=== PATIENT | male | born 1945 | race Caucasian/White ===

== ENCOUNTER 2017-11-20 02:55 | Inpatient (IN) | payer OTHER ==
[~2017-11-20] VITALS: Ht 175.3 cm; Wt 87.3 kg
--- NOTE | 2017-11-20 12:20 | Admission Core Measures ---
Acute Coronary Syndrome (CM) ACS Core Measures Acute Coronary Syndrome Diagnosis No Congestive Heart Failure (NEW) CHF Core Measures Congestive Heart Failure Diagnosis No Cerebrovascular Accident CVA Core Measures CVA/TIA Diagnosis No Venous Thromboembolism VTE Core Marycarmen (View Protocol) VTE Risk Factors Surgery No Mechanical VTE Prophylaxis d/t N/A MechProphylax Ordered No VTE Pharm Prophylaxis d/t NA PharmProphylax ordered Problem List As ranked by this Provider includes Assessment & Plan 1. Unilateral primary osteoarthritis, right hip HOME MEDS Home Med List No Known Home Medications
--- NOTE | 2017-11-20 12:20 | Surg Short-stay <48hrs Dis Sum ---
Visit Information Visit Dates Admission Date: 11/20/17 Surgical Short Stay DC Summary Admission Diagnosis: Right hip osteoarthritis Final Diagnosis: SARA s/p R BRANDON Procedure(s): Right total hip arthroplasty Summary/Significant Findings: Patient underwent an elective right total hip replacement on 11/20/[address] Treviño. Patient tolerated the procedure well. Postoperatively he was tolerating a regular diet, voiding spontaneously. Pain was well managed with oral medication and he was ambulating with physical therapy using a rolling walker. Patient was cleared for discharge. Condition at Discharge: Stable Discharge Disposition: home health services Discharge instructions provided to patient/family: Yes Post discharge follow-up plan: [address] Treviño
--- NOTE | 2017-11-20 12:23 | Patient Discharge Instructions ---
Discharge Instructions General Discharge Information You were seen/treated for: Right hip osteoarthritis You had these procedures: Right total hip arthroplasty on 11/20/17 Watch for these problems: Fever over 100.4 Drainage from wound Redness and swelling around wound Unable to bear weight on right lower extremity Chest pain or shortness of breath Do not soak the wound: Yes No bath, but you may shower: Yes Other wound care: Keep incision clean and dry Daily dry dressing changes Special Instructions: Take asiprin 81 mg twice daily to prevent clots Take Indomethacin 25 mg three times/day Take a stool softner or laxative, such as colace or miralax to prevent constipation while taking narcotics. Diet Continue normal diet: Yes Activity Full Activity/No Limits: No Activity Self Limited: Yes Activity Limited to: Weight bear as tolerated (use rolling walker as needed) Acute Coronary Syndrome Inclusion Criteria At DC or during hospital stay patient has or had the following: ACS DIAGNOSIS No Discharge Core Measures Meds if any: Prescribed or Continued at Discharge Meds if any: NOT Prescribed or Continued at Discharge Congestive Heart Failure Inclusion Criteria At DC or during hospital stay patient has or had the following: CHF DIAGNOSIS No Discharge Core Measures Meds if any: Prescribed or Continued at Discharge Meds if any: NOT Prescribed or Continued at Discharge Cerebrovascular accident Inclusion Criteria At DC or during hospital stay patient has or had the following: CVA/TIA Diagnosis No Discharge Core Measures Meds if any: Prescribed or Continued at Discharge Meds if any: NOT Prescribed or Continued at Discharge Venous thromboembolism Inclusion Criteria VTE Diagnosis No VTE Type NONE VTE Confirmed by (Test) NONE Discharge Core Measures - Per Current guidelines, there needs to be overlap - treatment for the first 5 days of Warfarin therapy. - If discharged on Warfarin prior to 5 days of - overlap therapy, the patient will need to be - assessed for post discharge needs including - *Post discharge parental anticoagulation - *Warfarin and/or parental anticoagulation education - *Follow up date to check INR post discharge At least 5 days overlap therapy as Inpatient No Meds if any: Prescribed or Continued at Discharge Note: Overlap Therapy is Warfarin and Anticoagulant Meds if any: NOT Prescribed or Continued at Discharge
[2017-11-20] MEDS ORDERED: DILAUDID2 M1 PO (13:56)
[2017-11-20] MEDS ORDERED: MIRALAX17 G1 PO (13:56)
[2017-11-20] MEDS ORDERED: COLACE100 M1 PO (13:56)
[2017-11-20] MEDS ORDERED: ASPIRIN EC81 M1 PO (13:56)
[2017-11-20] MEDS ORDERED: OMEPRAZOLE20 M3 PO (13:56)
[2017-11-20] MEDS ORDERED: INDOMETHACIN25 M1 PO (13:59)
--- NOTE | 2017-11-20 15:42 | Operative Report ---
Operative/Inv Procedure Report Surgery Date: 11/20/17 Name of Procedure: Right total hip replacement Pre-Operative Diagnosis: Primary right hip DJD Post-Operative Diagnosis: Same Estimated Blood Loss: 250 Surgeon/Summer Associate: Kamila JACOME,Fer Darling Anesthesia: block Operative/Procedure Note Note: Description of Procedure: The patient was taken to the operating room and positively identified. After induction of spinal anesthesia and administration of appropriate pre-operative antibiotics, the patient was positioned supine on the operating room table and all bony prominences were well padded. After performing a surgical timeout, the right lower extremity was prepped and draped in the usual sterile fashion. A direct anterior approach was made to the right hip. The incision was carried sharply through superficial soft tissues to the level of the fascia. Meticulous hemostasis was maintained with Bovie electocautery. The fascia over the tensor fascia lawrence muscle was opened sharply and the interval between the TFL and the sartorius was entered bluntly taking care to stay lateral to the lateral femoral cutaneous nerve. Retractors were placed around the femoral neck and the pericapsular fat was identified. The ascending branches of the lateral femoral circumflex vessels were identified and carefully coagulated. The pericapsular fat and anterior capsule were then resected. A napkin ring osteotomy was performed and the femoral head was removed without difficulty. Attention was then turned to the acetabulum. After appropriate placement of retractors, the acetabulum was exposed. Soft tissue was cleaned from the acetabular margin and notch. Overhanging osteophytes were removed and the teardrop was exposed. The acetabulum was then sequentially reamed to accept a 64 mm Nura Tritanium hemispherical solid shell. This was impacted into place in the appropriate position and fitted with a 36 mm Trident X3 zero degree polyethylene insert. Attention was then turned to the femur. After performing the appropriate ligament releases, the proximal femur was exposed. It was then sequentially broached to accept a size 9 Nura secure fit advanced 127 neck angle stem. This was trialed for leg length and stability. The trial component was removed and the final component was impacted into place. The trunnion was carefully cleaned and fit with a 36 mm, +2.5 Biolox delta ceramic femoral head. The hip was reduced and put through a full range of motion and found to be stable. The articular space was then irrigated with sterile saline. The periarticular soft tissues were infilitrated with Marcaine. The fascial layer was closed with interrupted #1 vicryl suture and the skin was re-approximated with interrupted 2 -0 vicryl. The skin was closed with a running 3-0 V-Lock suture. Steri-strips and a sterile dressing were applied. The patient was awakened and taken to the recovery room in satisfactory condition.
--- NOTE | 2017-11-20 16:46 | RADIOLOGY REPORT ---
EXAMINATION: XR HIP, RIGHT CLINICAL INFORMATION: Right hip replacement. COMPARISON: None TECHNIQUE: Two views of the right hip. FINDINGS: Status post right hip replacement. Orthopedic components in position. There is air in the soft tissue around the hip from recent surgery . IMPRESSION: Status post right hip replacement.
--- NOTE | 2017-11-20 16:51 | PN- Student ---
Robert,Sammi 11/20/17 3640: Subjective Subjective: Saw pt post op in PACU and he is doing well. His pain is well controlled. He hasn't tried any sips of water yet but is feeling thirsty. No n/v. He hasn't been oob yet, he will be going up to the floor soon. No pulido, awaiting post op void. No other complaints at this time. Objective Objective: Objective: Gen: O&Ax3, laying in bed, nad Lung: CTA Heart: s1 and s2 normal, RRR Abd: soft, nt/nt, hypoactive bs Ext: dressing on right hip- c/d/i- ALPS in place, bilaterally sensation and motor intact, strength 5/5, dp 2+ Assessment/Plan Assessment: This is a 72 yo male POD 0 s/p right total hip arthroplasty. Plan: -Give ancef tonight -c/w IV fluids- likely dc tomorrow -aspirin, ALPS dvt ppx -Pain control as ordered -Pt will be evaluated by PT, WBAT -No pulido, awaiting void -Reg diet, as tolerated -Zofran prn nausea -Encourage IS, oob -order AM labs -C/w home meds -dressing change POD 2 Ashlee Mckeon 11/21/17 0813: Assessment/Plan Plan: Agree with above
[2017-11-20 17:00] VITALS: BP 130/70
[2017-11-20 19:00] VITALS: BP 120/60
[2017-11-20 21:00] VITALS: BP 122/60
[2017-11-21 03:07] VITALS: BP 122/58
[2017-11-21 06:47] VITALS: BP 142/74
[2017-11-21 08:21] LABS: ABSOLUTE BASOPHIL COUNT 0 /CUMM (0.0-0.2); ABSOLUTE EOSINOPHIL COUNT 0 /CUMM (0.0-0.7); ABSOLUTE GRANULOCYTE CT 7.7 /CUMM (1.4-6.5); ABSOLUTE LYMPH COUNT 0.7 /CUMM (1.2-3.4); ABSOLUTE MONOCYTE COUNT 0.7 /CUMM (0.10-0.60); BASOPHIL % 0 % (0.0-2.0); EOSINOPHIL % 0 % (0-5); HEMATOCRIT 37.9 % (42-52); MEAN CORPUSCULAR HGB 31.7 PG (27.0-31.0); MEAN CORPUSCULAR VOLUME 93.3 FL (80.0-94.0); MEAN PLATELET VOLUME 8.9 FL (7.4-10.4); PLATELET COUNT 195 /CUMM (130-400); RBC DISTRIBUTION WIDTH 13.1 % (11.5-14.5); RED BLOOD CELL CT 4.06 /CUMM (4.70-6.10); WHITE BLOOD CELL COUNT 9.1 /CUMM (4.8-10.8)
--- NOTE | 2017-11-21 08:28 | PN- Orthopedic ---
Subjective Subjective: pt sitting in bed about to work with PT, pain well-controlled. voiding, tolerating diet, no nausea. ambulating with rollign walker Objective Vital Signs and I&Os Vital Signs Date Time Temp Pulse Resp B/P B/P Pulse O2 O2 Flow FiO2 Mean Ox Delivery Rate 11/21 0647 98.0 59 16 142/74 96 Room Air 11/21 0307 98.3 61 16 122/58 96 Room Air 11/20 2100 97.9 68 16 122/60 96 Room Air 11/20 1900 97.4 68 16 120/60 96 Room Air 11/20 1700 97.8 63 18 130/70 96 Room Air Intake & Output 11/21 1600 11/21 0800 11/21 0000 11/20 1600 11/20 0800 11/20 0000 Intake Total 225 Output Total 700 Balance -475 Intake, IV 225 Output, Urine 700 Patient 193 lb 195 lb Weight Weight Reported by Patient Measurement Method Physical Exam: gen- nad resp- clear cardiac- rrr abd- soft, NT ext- right thigh is soft, minimally tender around incision. dressing clean and dry. no calf tenderness. distal sensory and motor function intact. 2+dp pulse Current Medications: Current Medications Sig/Eunice Start time Last Medication Dose Route Stop Time Status Admin Acetaminophen 1,000 MG Q6 11/20 1800 DC 11/21 IV 11/21 0601 0553 Acetaminophen 0 .STK-MED ONE 11/20 1306 DC PO Acetaminophen 975 MG ONCE 11/20 0000 DC PO 11/20 235 Aspirin Buffered 81 MG BID 11/20 2099 AC 11/20 PO 2053 Cefazolin Sodium 2 GM Q8H 11/20 2030 DC 11/21 N/A 1 UNIT IV 11/21 0459 0450 Cefazolin Sodium 2 GM IQ8 11/20 1600 DC N/A 1 UNIT IV 11/21 0029 Cefazolin Sodium 2,000 MG ONCE 11/20 0000 DC IV 11/20 235 Dextrose/Sodium 1,000 ML .[id number] 11/20 1744 AC 11/20 Chloride IV 1745 Docusate Sodium 100 MG BID 11/20 2100 AC 11/20 PO 205 Hydromorphone HCl 2 MG Q4P PRN 11/20 174 AC 11/20 PO 2344 Hydromorphone HCl 4 MG Q4P PRN 11/20 174 AC 11/21 PO 0059 Indomethacin Sodium 25 MG TID 11/20 2100 AC 11/20 PO 2054 Midazolam HCl 0 .STK-MED ONE 11/20 1026 DC .ROUTE Morphine Sulfate 2 MG Q2P PRN 11/20 1745 AC IV Omeprazole 20 MG DAILY AC 11/21 0700 AC 11/21 PO 0554 Ondansetron HCl 4 MG Q6P PRN 11/20 1745 AC IV Oxycodone HCl 0 .STK-MED ONE 11/20 1306 DC PO Oxycodone HCl 10 MG ONCE 11/20 0000 DC PO 11/20 2359 Polyethylene Glycol 17 GM DAILY 11/21 0900 AC PO Tranexamic Acid 0 .STK-MED ONE 11/20 1026 DC IV Results Last 48 Hours of Labs: Laboratory Tests 11/21 714 Chemistry Sodium Pending Potassium Pending Chloride Pending Carbon Dioxide Pending Anion Gap Pending BUN Pending Creatinine Pending BUN/Creatinine Ratio Pending Hematology CBC w Diff Pending WBC Pending RBC Pending Hgb Pending Hct Pending MCV Pending MCH Pending MCHC Pending RDW Pending Plt Count Pending MPV Pending Assessment/Plan Assessment/Plan 72yoM SP R BRANDON POD1. stable pain management PT- WBAT w RW dvt ppx- asa dc planning- likel;y home today pending cleared by PT dressing cahnge POD2 FU am labs dc IVF reg diet reg home meds FU with Dr Rod in 6 weeks Core Measures Venous Thromboembolism VTE Risk Factors Surgery No Mechanical VTE Prophylaxis d/t N/A MechProphylax Ordered No VTE Pharm Prophylaxis d/t NA PharmProphylax ordered
== END 2017-11-21 12:56 | disposition home health service (06) | DRG 470 ==
LOC: SDA 02:55 → 2NB 02:55 → SDA 07:00 → ENRESERV 16:33 → ENTRNSPT 16:40 → EDTRNSPTSTS 16:49 → EDTRNSPT 16:49 → 2NB 17:00 → CMPTRNSPT 17:12 → ENTRNSPT 11-21 12:40 → EDTRNSPTSTS 11-21 12:54 → 2NB 11-21 12:56 → CMPTRNSPT 11-21 13:09
PROVIDERS: Physician Assistant Surgical
PROC: 0SR904A Replacement of Right Hip Joint with Ceramic on Polyethylene Synthetic Substitute, Uncemented, Open Approach (ICD-10-PCS; principal; 2017-11-20)
DX: M16.11 Unilateral primary osteoarthritis, right hip (principal); Z85.828 Personal history of other malignant neoplasm of skin; R94.31 Abnormal electrocardiogram [ECG] [EKG]; N40.0 Benign prostatic hyperplasia without lower urinary tract symptoms; E78.00 Pure hypercholesterolemia, unspecified; K21.9 Gastro-esophageal reflux disease without esophagitis; M35.3 Polymyalgia rheumatica; M54.9 Dorsalgia, unspecified; E78.5 Hyperlipidemia, unspecified
CPT/HCPCS: 2NBP; 36592; 73502-RT; 82436; 97110-GO; 97116-GO; 97161-GP; J0131; J0690; J0735; J7042